=== PATIENT | female | born 2000 | race Caucasian/White ===

== ENCOUNTER 2021-12-16 08:03 | Emergency (ER) | payer BC, SELFPAY ==
[2021-12-16 08:14] VITALS: BP 106/65; PULSE 72; RESP 16; TEMP 36.7; O2SAT 100
--- NOTE | 2021-12-16 08:14 | ED.SKABFB ---
HPI - Skin/Abscess/Foreign Bdy General Chief complaint: Skin/Abscess/Foreign Body Stated complaint: lips Source: patient, RN notes reviewed and old records reviewed Mode of arrival: ambulatory Limitations: no limitations History of Present Illness HPI narrative: 21-year-old female who presents to [facility] with complaints of blistering lesions on her lips which started 1 week ago, now lips are severely chapped swollen and painful. Patient states she did use Aquaphor on her lips but it did not seem to help, did also use some lysine ointment which made things worse. The patient's lower lip is red swollen with no open lesions noted or blisters, no lesions inside of mouth noted. Patient states she has had this 1 time before that did clear with the Aquaphor. MD complaint: other (Initial blistering lesions on lips now red swollen and chapped painful) Onset (ago): week(s) (1) Treatments prior to arrival: other (Aquaphor and lysine appointment) Related Data Home Medications Medication Instructions Recorded Confirmed Lamisil 12/16/21 levetiracetam 750 mg tablet 750 mg PO DAILY 12/16/21 12/16/21 Allergies Allergy/AdvReac Type Severity Reaction Status Date / Time aptiom Allergy Rash Uncoded 12/16/21 08:19 Review of Systems Review of Systems: CONSTITUTIONAL: Denies fever, chills, or sweats. CARDIOVASCULAR: Denies chest pain, palpitations, or edema. RESPIRATORY: Denies cough or dyspnea. SKIN: Reports red swollen lips chapped and painful especially lower lip no present open lesions or blisters noted MUSCULOSKELETAL: Denies joint pain or myalgia. NEUROLOGIC: Denies headache, numbness, or weakness. All systems reviewed & are unremarkable except as noted in HPI and below PMFSH Past Medical History Medical History (Updated 12/16/21 @ 08:33 by Chrissy Birmingham NP) Seizures Surgical History Surgical History (Updated 12/16/21 @ 08:27 by Chrissy Birmingham NP) [place] teeth extracted Social History Social History (Updated 12/16/21 @ 08:27 by Chrissy Birmingham NP) Smoking status: Never smoker Alcohol intake: never Substance use: never Living arrangements: with family Gender identity (if verbalized by the patient): Female Comments At time of signature, agree with nursing past medical, surgical, social and family history. There is no relevant family history pertinent to the presenting complaint Exam Narrative: GENERAL: Well-appearing, well-nourished, and in no acute distress. HEAD: Normocephalic, atraumatic. EYES: PERRLA, conjunctivae clear, and EOMI. ENT: Mucous membranes moist. Oropharynx without edema, erythema or lesions. NECK: Supple. No lymphadenopathy CHEST: Clear to auscultation. No respiratory distress. HEART: Regular rate and rhythm. SKIN: Warm, dry.? Patches of erythema and edema to lower lip chapped skin on lips especially lower lip, no open lesions noted, NEURO:? Alert and oriented x3. PSYCH: Normal mood and affect Course Course Emergency Course: Patient is aware of diagnosis, understands and agrees to treatment plan.? Anticipatory guidance given.? Patient agrees to follow-up as directed and is aware of reasons to seek care at the emergency department. Portions of this record may have been created with voice recognition software Level of Care: Express Care Visit Vital Signs Vital signs: Vital Signs Temperature 36.7 C 12/16/21 08:14 Pulse Rate 72 12/16/21 08:14 Respiratory Rate 16 12/16/21 08:14 Blood Pressure 106/65 12/16/21 08:14 Pulse Oximetry 100 12/16/21 08:14 Oxygen Delivery Room Air 12/16/21 08:14 Temperature 36.7 C 12/16/21 08:14 Pulse Rate 72 12/16/21 08:14 Respiratory Rate 16 12/16/21 08:14 Blood Pressure 106/65 12/16/21 08:14 Pulse Oximetry 100 12/16/21 08:14 Oxygen Delivery Room Air 12/16/21 08:14 Reviewed MDM - Skin/Abscess/Foreign Bdy MDM Narrative Medical decision making narrative: Does not
== END 2021-12-16 08:47 | disposition home or self-care (01) ==
PROVIDERS: Emergency Provider Registered Nurse; PCP Family Medicine
DX: B00.1 Herpesviral vesicular dermatitis (principal); L98.8 Other specified disorders of the skin and subcutaneous tissue
CPT/HCPCS: 99213; G0463